=== PATIENT | female | born 1985 | race Caucasian/White ===

== ENCOUNTER 2017-08-27 19:06 | Emergency (ER) | payer BC ==
[2017-08-27 19:19] VITALS: BP 126/79
--- NOTE | 2017-08-27 19:37 | UC ---
Throat Pain/Nasal Chauncey HPI - HPI Summary HPI Summary: Pt presents with sinus pain/pressure/congestion for the last 2 weeks. I saw her earlier this month for URI-like symptoms, which have resolved. Has been taking sudafed OTC with mild relief. Denies fever, chills, sore throat, cough, SOB, chest pain. - History of Current Complaint Chief Complaint: UCGeneralIllness Stated Complaint: SINUS PRESSURE Time Seen by Provider: 08/27/17 19:32 Hx Obtained From: Patient Hx Last Menstrual Period: 07/19/17 Onset/Duration: Gradual Onset Severity: Severe Pain Intensity: 8 Pain Scale Used: 0-10 Numeric - Allergies/Home Medications Allergies/Adverse Reactions: Allergies Allergy/AdvReac Type Severity Reaction Status Date / Time Penicillins Allergy Hives Verified 08/27/17 19:18 Sulfa (Sulfonamide Allergy Hives Verified 08/27/17 19:18 Antibiotics) PMH/Surg Hx/FS Hx/Imm Hx - Additional Past Medical History Additional PMH: None Previously Healthy: Yes - Surgical History Surgical History: Yes Surgery Procedure, Year, and Place: Breast reduction 2008 - Family History Known Family History: Positive: None - Social History Occupation: Employed Full-time Lives: With Family Alcohol Use: Rare Substance Use Type: None Smoking Status (MU): Never Smoked Tobacco Review of Systems Constitutional: Negative Skin: Negative Eyes: Negative ENT: Nasal Discharge, Sinus Congestion, Sinus Pain/Tenderness Respiratory: Negative Cardiovascular: Negative Gastrointestinal: Negative Neurovascular: Negative Neurological: Negative Psychological: Negative All Other Systems Reviewed And Are Negative: Yes Physical Exam - Summary Physical Exam Summary: GENERAL: NAD. WDWN HEENT: NC/AT. Conjunctiva clear without inflammation or discharge. TMs intact , no bulging, erythema, or edema. Nasal mucosa moderately swollen and erythematous with yellow discharge. TTP maxillary and frontal sinus. Posterior oropharynx without exudates, erythema, or tonsillar enlargement. Uvula midline. NECK: Supple without lymphadenopathy CHEST: CTAB. No r/r/w. No accessory muscle use. Breathing comfortably and in no distress. CV: RRR. Without m/r/g. Pulses intact. SKIN: No rash or erythema noted. NEURO: Alert. CN II-XII grossly intact. PSYCH: Age appropriate behavior. Triage Information Reviewed: Yes Vital Signs: Initial Vital Signs Temp 97.7 F 08/27/17 19:15 Pulse 66 08/27/17 19:15 Resp 17 08/27/17 19:15 BP 126/79 08/27/17 19:15 Pulse Ox 99 08/27/17 19:15 Throat Pain/Nasal Course/Dx - Course Course Of Treatment: Sinusitis - zpak - Differential Dx/Diagnosis Provider Diagnoses: Sinusitis Discharge - Sign-Out/Discharge Documenting (check all that apply): Discharge/Admit/Transfer - Discharge Plan Condition: Stable Disposition: HOME Prescriptions: Azithromycin TAB* [Zithromax TAB (Z-JAIME) 250 mg #6 tabs] 2 tab PO .TODAY, THEN 1 DAILY #1 jaime Patient Education Materials: Sinusitis (ED) Referrals: Lola Vega DO [Primary Care Provider] - Additional Instructions: If you develop a fever, shortness of breath, chest pain, new or worsening symptoms - please call your PCP or go to the ED. - Billing Disposition and Condition Condition: STABLE Disposition: HOME
== END 2017-08-27 19:44 | disposition home or self-care (01) ==
LOC: UCCORT 19:06
DX: J32.9 Chronic sinusitis, unspecified (principal); Z88.2 Allergy status to sulfonamides; Z88.0 Allergy status to penicillin
CPT/HCPCS: 99212; G0463

== ENCOUNTER 2018-11-25 07:48 | Emergency (ER) | payer BC ==
[2018-11-25 08:03] VITALS: BP 132/74
--- NOTE | 2018-11-25 08:29 | UC ---
Throat Pain/Nasal Chauncey HPI - HPI Summary HPI Summary: 33 yo female has had a right sided sore throat x 5 days no f/c slight right otalgia no LEON no toothache HAS HAD MONO - History of Current Complaint Chief Complaint: UCRespiratory Stated Complaint: SORE THROAT Time Seen by Provider: 11/25/18 08:01 Hx Obtained From: Patient Hx Last Menstrual Period: 11/22/18 Onset/Duration: Gradual Onset, Lasting Days - % Severity: Moderate Pain Intensity: 5 Pain Scale Used: 0-10 Numeric Cough: None Associated Signs & Symptoms: Positive: Dysphagia. Negative: FB Sensation, Drooling, Wheezing, Hoarseness, Sinus Discomfort, Nasal Discharge, Fever, Vomiting, Rash - Epiglottits Risk Factors Epiglottis Risk Factors: Negative - Allergies/Home Medications Allergies/Adverse Reactions: Allergies Allergy/AdvReac Type Severity Reaction Status Date / Time Penicillins Allergy Hives Verified 11/25/18 08:00 Sulfa (Sulfonamide Allergy Hives Verified 11/25/18 08:00 Antibiotics) PMH/Surg Hx/FS Hx/Imm Hx Previously Healthy: Yes - Surgical History Surgical History: Yes Surgery Procedure, Year, and Place: Breast reduction 2008 - Family History Known Family History: Positive: Non-Contributory - Social History Alcohol Use: Rare Substance Use Type: None Smoking Status (MU): Never Smoked Tobacco Review of Systems All Other Systems Reviewed And Are Negative: Yes Constitutional: Positive: Negative Skin: Positive: Negative Eyes: Positive: Negative ENT: Positive: Sore Throat Respiratory: Positive: Negative Cardiovascular: Positive: Negative Gastrointestinal: Positive: Negative Genitourinary: Positive: Negative Motor: Positive: Negative Neurovascular: Positive: Negative Musculoskeletal: Positive: Negative Neurological: Positive: Negative Psychological: Positive: Negative Is Patient Immunocompromised?: No Physical Exam Triage Information Reviewed: Yes Appearance: Well-Appearing, No Pain Distress, Well-Nourished Vital Signs: Initial Vital Signs Temp 97.7 F 11/25/18 08:01 Pulse 74 11/25/18 08:01 Resp 16 11/25/18 08:01 BP 132/74 11/25/18 08:01 Pulse Ox 100 11/25/18 08:01 Vital Signs Reviewed: Yes Eyes: Positive: Conjunctiva Clear ENT: Positive: Hearing grossly normal, Pharyngeal erythema, TMs normal, Tonsillar swelling - slight, Tonsillar exudate - mild, Uvula midline. Negative : Nasal congestion, Nasal drainage, Trismus, Muffled voice, Hoarse voice, Dental tenderness, Sinus tenderness Dental Exam: Normal Neck: Positive: Supple, Nontender, Enlarged Nodes @ - Right cervical Respiratory: Positive: Lungs clear, Normal breath sounds, No respiratory distress, No accessory muscle use Cardiovascular: Positive: RRR, No Murmur Musculoskeletal: Positive: ROM Intact, No Edema Neurological: Positive: Alert Psychological Exam: Normal Skin Exam: Normal Diagnostics - Laboratory Lab Results: strep (-) Throat Pain/Nasal Course/Dx - Differential Dx/Diagnosis Provider Diagnosis: Pharyngotonsillitis, Elevated BP without diagnosis of hypertension Discharge - Sign-Out/Discharge Documenting (check all that apply): Patient Departure All imaging exams completed and their final reports reviewed: No Studies - Discharge Plan Condition: Stable Disposition: HOME Prescriptions: Cephalexin CAP* [Keflex CAP*] 500 mg PO TID #30 cap Patient Education Materials: Pharyngitis (ED) Referrals: Herlinda Oneal [Primary Care Provider] - If Needed Additional Instructions: your rapid strep was negative..a throat culture is pending I don't like the fact that your sore throat is unilateral I suggest you go to the ER for: high fever worsening sore throat /worsening trouble swallowing if not better in 48 hours if you fail to improve or get worse you may need special imaging of you neck to check for a deep abscess I saw no peritonsillar abscess - Billing Disposition and Condition Condition: STABLE Disposition: Home
== END 2018-11-25 08:37 | disposition home or self-care (01) ==
LOC: UCCORT 07:48
DX: J03.90 Acute tonsillitis, unspecified (principal); R03.0 Elevated blood-pressure reading, without diagnosis of hypertension; Z88.0 Allergy status to penicillin; Z88.2 Allergy status to sulfonamides
CPT/HCPCS: 87070; 87651; 99212; G0463